=== PATIENT | male | born 2000 | race Caucasian/White ===

== ENCOUNTER 2024-11-01 10:08 | Emergency (ER) | payer OTHER, SELFPAY ==
[2024-11-01] MEDS ORDERED: MORPHINE 4 MG/ML SYR ONE ×2 (10:50→11:59)
[2024-11-01] MEDS ORDERED: NA CHLORIDE 0.9% 1,000 ML ONE (10:50)
[2024-11-01] MEDS ORDERED: ONDANSETRON 4 MG/2 ML VIAL ONE (10:50)
[2024-11-01 11:10] LABS: Absolute Lymphocytes (CBC) 0.5 K/uL (0.7-4.9); Hematocrit 42.6 % (39.6-49.0); Hemoglobin 14.5 g/dL (13.6-17.9); MCH 32.0 pg (27.0-35.0); MCHC 34.1 g/dL (32.0-36.0); MCV 93.8 fL (80-100); MPV 7.7 fL (7.6-11.3); Nucleated RBC Absolute Count 0.0 (0-0); Nucleated Red Blood Cells % 0.1 % (0-0); RBC Red Blood Cell Count 4.54 M/uL (4.33-5.43); White Blood Count 6.90 thou/uL (4.3-10.9)
[2024-11-01 11:40] LABS: ALT/SGPT 16 U/L (16-61); AST/SGOT < 10 U/L (15-37); Albumin 3.8 g/dL (3.4-5.0); Albumin/Globulin Ratio 1.0 (1.1-1.8); Alkaline Phosphatase 51 U/L (45-117); Anion Gap 9.8 mEq/L (5.0-15.0); BUN Blood Urea Nitrogen 13 mg/dL (7-18); Globulin 4.0 g/dL (2.3-3.5); Glucose Level 119 mg/dL (74-106); Lipase 26 U/L (13-75); Potassium 2.8 mEq/L (3.5-5.1)
[2024-11-01] MEDS ORDERED: POTASSIUM 25 MEQ EFFERV TAB ONE (11:46)
--- NOTE | 2024-11-01 12:34 | RAD REPORT ---
EXAMINATION: CT Abdomen Pelvis W Contrast CLINICAL INDICATION: Male, 24 years old. ABD PAIN TECHNIQUE: CT abdomen and pelvis was performed, after the administration of IV contrast, as per [facility] protocol. Axial, sagittal and coronal reconstructions were obtained. One or more of the following dose reduction techniques were used: Automated exposure control, adjustment of the mA and k V according to patient size, and iterative reconstruction. Unless otherwise specified, incidental findings do not require dedicated imaging follow-up. COMPARISON: No prior exam. FINDINGS: LOWER CHEST: The visualized lung bases are clear. LIVER: Normal in size and contour. No focal lesion. BILIARY SYSTEM: No suspicious abnormalities. SPLEEN: Normal size. No focal lesion. PANCREAS: No mass, ductal dilation, or yordan-pancreatic fluid. ADRENALS: Normal; no mass. KIDNEYS: Normal size and contour. No hydronephrosis. URINARY BLADDER: Unremarkable. GASTROINTESTINAL TRACT: Wall thickening of the distal colon involving the descending colon through th e upper rectum. Mild free fluid in the deep pelvis. No evidence of free air, bowel obstruction or abscess. APPENDIX: Normal appendix. LYMPH NODES: No lymphadenopathy. MUSCULOSKELETAL: No acute or suspicious osseous abnormality. ADDITIONAL FINDINGS: None. IMPRESSION: Segmental distal colonic or rectal wall thickening as above, suggestive of segmental infectious or in flammatory colitis. Mild pelvic ascites.
[2024-11-01] MEDS ORDERED: AMOX/K CLAV 875 MG TAB ONE (12:42)
--- NOTE | 2024-11-01 13:09 | EDPHYS ---
Physician Documentation [facility] Name: Brandin Mcgregor Age: 24 yrs Sex: Male : 2000 Arrival Date: 11/01/2024 Time: 10:08 Bed 13 Private MD: ED Physician Monico Lino HPI: 11/01 15:48 This 24 yrs old Male presents to ER via Ambulatory with complaints of dr5 Abdominal Pain, Bloody Stools. 15:48 The patient presents with abdominal pain in the left lower quadrant. Onset: The dr5 symptoms/episode began/occurred last night. Patient is a 24-year-old male with no Brandi history coming in with left lower quadrant abdominal pain with bloody stools and diarrhea. Patient reports that he also had fever last night that has since resolved. Patient denies chest pain, shortness of breath, nausea, vomiting, constipation.. Historical: - Allergies: 10:26 No Known Allergies; ll1 - PMHx: 10:26 None; ll1 - PSHx: 10:26 None; ll1 - Immunization history:: Adult Immunizations up to date. - Social history:: Smoking status: Patient reports the use of cigarette tobacco products, smokes .2 packs per day, Reported history of juuling and/or vaping. ROS: 15:48 Constitutional: as per hpi dr5 Exam: 15:48 Constitutional: This is a well developed, well nourished patient who is awake, alert, dr5 and in no acute distress. Head/Face: Normocephalic, atraumatic. Eyes: Pupils equal round and reactive to light, extra-ocular motions intact. Lids and lashes normal. Conjunctiva and sclera are non-icteric and not injected. Cornea within normal limits. Periorbital areas with no swelling, redness, or edema. Neck: Trachea midline, no thyromegaly or masses palpated, and no cervical lymphadenopathy. Supple, full range of motion without nuchal rigidity, or vertebral point tenderness. No Meningismus. Chest/axilla: Normal chest wall appearance and motion. Nontender with no deformity. No lesions are appreciated. Cardiovascular: Regular rate and rhythm with a normal S1 and S2. Normal PMI, no JVD. No pulse deficits. Respiratory: Lungs have equal breath sounds bilaterally, clear to auscultation. No rales, rhonchi or wheezes noted. No increased work of breathing, no retractions or nasal flaring. Back: No spinal tenderness. No costovertebral tenderness. Full range of motion. Skin: Warm, dry with normal turgor. Normal color with no rashes, no lesions, and no evidence of cellulitis. MS/ Extremity: Pulses equal, no cyanosis. Neurovascular intact. Full, normal range of motion. Neuro: Awake and alert, GCS 15, oriented to person, place, time, and situation. Cranial nerves II-XII grossly intact. Motor strength 5/5 in all extremities. Sensory grossly intact. Cerebellar exam normal. Normal gait. 15:48 Abdomen/GI: Inspection: abdomen appears normal, Bowel sounds: normal, Palpation: soft, nontender, in all quadrants, Vital Signs: 10:26 BP 143 / 95; Pulse 72; Resp 17; Temp 98.6; Pulse Ox 99% on R/A; Weight 129.27 kg; ll1 Height 6 ft. 0 in. ; Pain 3/10; 11:00 BP 117 / 81; Pulse 73; Resp 18; Pulse Ox 100% on R/A; jp5 12:10 Pain 8/10; jp5 12:10 BP 114 / 67; Pulse 80; Resp 16; Pulse Ox 100% on R/A; jp5 13:00 BP 93 / 72; Pulse 78; Resp 16; Temp 98; Pulse Ox 100% on R/A; Pain 0/10; jp5 10:26 Body Mass Index 38.65 (129.27 kg, 182.88 cm) ll1 10:26 Pain Scale: Adult ll1 12:10 Pain Scale: Adult jp5 13:00 Pain Scale: Adult jp5 MDM: 10:14 Medical Screening Exam initiated dr5 15:48 Differential diagnosis: appendicitis, cholecystitis, Cholelithiasis, diverticulitis, dr5 gastritis, Colitis, diverticulitis. Data reviewed: vital signs, nurses notes, lab test result(s), amylase and lipase, CBC, white blood cell count, hemoglobin, hematocrit, platelets, electrolytes, sodium, potassium, chloride, serum bicarbonate, BUN, creatinine, serum glucose, radiologic studies, CT scan. Consideration of Admission/Observation Escalation of care including admission/observation considered. Escalation considered patient found to have anemia or abnormality on CT scan. I considered the following discharge prescriptions or medication management in the emergency department I discussed and recommended Over The Counter medications, Medications were administered in the Emergency Department. See MAR. Test considered but Not performed: X-ray: X-ray considered of chest but patient not having chest pain or cough.. Historians other than the Patient: Spouse/Significant Other: Significant other. Care significantly affected by the following Social Determinants of Health: Poor access to healthcare and/or lack of insurance, Poor access to transportation, Problems related to employment. Counseling: I had a detailed discussion with the patient and/or guardian regarding the historical points, exam findings, and any diagnostic results supporting the discharge/admit diagnosis, the presence of at least one elevated blood pressure reading (>120/80) during this emergency department visit, lab results, radiology results, the need for outpatient follow up, for definitive care, a family practitioner, to return to the emergency department if symptoms worsen or persist or if there are any questions or concerns that arise at home. Medication response: morphine relieved the patient's pain. Symptoms have resolved, Zofran relieved the patient's nausea. 11/01 10:25 Order name: CBC with Diff; Complete Time: 11:13 11/01 10:25 Order name: CMP; Complete Time: 11:43 11/01 10:25 Order name: Lipase; Complete Time: 11:43 11/01 10:25 Order name: CT Abd/Pelvis - IV Contrast Only; Complete Time: 12:36 11/01 10:25 Order name: IV Saline Lock; Complete Time: 11:00 11/01 10:25 Order name: Labs collected and sent; Complete Time: 11:00 dr5 Administered Medications: 11:00 Drug: NS 0.9% IV 1000 ml IV at 1 bolus Per protocol; to be given as a bolus over 60 jp5 minutes Route: IV; Rate: 1 bolus; Site: right antecubital; 12:00 Follow up: Response: No adverse reaction; IV Status: Completed infusion; IV Intake: jp5 1000ml 11:01 Drug: Ondansetron IVP 4 mg IVP once; over 2 minutes Route: IVP; Site: right antecubital;jp5 11:30 Follow up: Response: No adverse reaction jp5 11:10 Not Given (Patient Refused): morphineor iv 4 mg IVP once over 4 mins jp5 11:48 Drug: Potassium PO Effervescent Tablet 50 mEq PO once; dissolve in 4 ounces of water or jp5 juice Route: PO; 12:15 Follow up: Response: No adverse reaction jp5 12:10 Drug: morphine IVP or IV 4 mg IVP once over 4 mins Route: IVP; Infused Over: 4 mins; jp5 Site: right antecubital; 12:39 Follow up: Response: No adverse reaction; Pain is decreased jp5 12:43 Drug: Amoxicillin-Clavulanate PO 875 mg PO once Route: PO; jp5 Disposition: 16:08 I was immediately available on-site in the Emergency Department for consultation in the ms3 care of the patient. Disposition Summary: 11/01/24 13:09 Discharge Ordered Notes: Location: Home dr5 Condition: Stable dr5 Diagnosis - Other specified noninfective gastroenteritis and colitis dr5 Followup: dr5 - With: Emergency Department - When: As needed - Reason: Worsening of condition Followup: dr5 - With: Private Physician - When: 1 - 2 days - Reason: Recheck today's complaints, Continuance of care, Re-evaluation by your physician Discharge Instructions: - Discharge Summary Sheet dr5 - Colitis dr5 Forms: - Medication Reconciliation Form dr5 - Antibiotic Education dr5 - Prescription Opioid Use dr5 - Patient Portal Instructions dr5 - Leadership Thank You Letter dr5 Prescriptions: - Augmentin 875-125 mg Oral Tablet - take 1 tablet ORAL route every 12 hours for 10 days; 20 tablet; Refills: 0, dr5 Product Selection Permitted - Tramadol 50 mg Oral Tablet - take 1 tablet ORAL route every 8 hours as needed; 12 tablet; Refills: 0, dr5 Product Selection Permitted Signatures: Dispatcher [employer] EDMitchell Talavera, RN RN ll1 Monico Lino DO DO ms3 Carolyn Quezada RN RN jp5 Kristian Avitia, DIRECTOR OF GRANTS-C DIRECTOR OF GRANTS-Cdr5
--- NOTE | 2024-11-01 13:09 | ER ---
Nurse's Notes [facility] Name: Brandin Mcgregor Age: 24 yrs Sex: Male : 2000 Arrival Date: 11/01/2024 Time: 10:08 Bed 13 Private MD: Diagnosis: Other specified noninfective gastroenteritis and colitis Presentation: 11/01 10:26 Chief complaint: Patient states: Abdominal pain with fever started 2 night ago. Started ll1 having bloody stools yesterday, at least 15 episodes since. Coronavirus screen: Client denies travel out of the [place] in the last 14 days. Ebola Screen: Patient denies travel to an Ebola-affected area in the 21 days before illness onset. Initial Sepsis Screen: Does the patient meet any 2 criteria? No. Patient's initial sepsis screen is negative. Does the patient have a suspected source of infection? No. Patient's initial sepsis screen is negative. Risk Assessment: Do you want to hurt yourself or someone else? Patient reports no desire to harm self or others. Onset of symptoms was October 30, 2024. 10:26 Method Of Arrival: Ambulatory ll1 10:26 Acuity: HALEY 2 ll1 Historical: - Allergies: 10:26 No Known Allergies; ll1 - PMHx: 10:26 None; ll1 - PSHx: 10:26 None; ll1 - Immunization history:: Adult Immunizations up to date. - Social history:: Smoking status: Patient reports the use of cigarette tobacco products, smokes .2 packs per day, Reported history of juuling and/or vaping. Screenin:55 [facility] ED Fall Risk Assessment (Adult) History of falling in the last 3 months, jp5 including since admission No falls in past 3 months (0 pts) Confusion or Disorientation No (0 pts) Intoxicated or Sedated No (0 pts) Impaired Gait No (0 pts) Mobility Assist Device Used No (0 pt) Altered Elimination No (0 pt) Score/Fall Risk Level 0 - 2 = Low Risk. [facility] ED Fall Risk Assessment (Adult) Score/Fall Risk Level 0 - 2 = Low Risk Oriented to surroundings, Maintained a safe environment, Educated pt \T\ family on fall prevention, incl call for assistance when getting out of bed, Assessed \T\ reinforced patient's understanding of fall precautions, Provided non-skid footwear, Hourly rounding (assess needs \T\ fall precautionary measures) done. Abuse screen: Denies threats or abuse. Denies injuries from another. Nutritional screening: No deficits noted. Tuberculosis screening: No symptoms or risk factors identified. Assessment: 10:55 Pain: Complains of pain in abdomen Pain currently is 8 out of 10 on a pain scale. jp5 Quality of pain is described as crampy, Current management is with pt refusing pain meds at this time - is no interventions. GI: Bowel sounds present X 4 quads. Abd is soft Reports diarrhea, nausea, blood in stool. Vital Signs: 10:26 BP 143 / 95; Pulse 72; Resp 17; Temp 98.6; Pulse Ox 99% on R/A; Weight 129.27 kg; ll1 Height 6 ft. 0 in. ; Pain 3/10; 11:00 BP 117 / 81; Pulse 73; Resp 18; Pulse Ox 100% on R/A; jp5 12:10 Pain 8/10; jp5 12:10 BP 114 / 67; Pulse 80; Resp 16; Pulse Ox 100% on R/A; jp5 13:00 BP 93 / 72; Pulse 78; Resp 16; Temp 98; Pulse Ox 100% on R/A; Pain 0/10; jp5 10:26 Body Mass Index 38.65 (129.27 kg, 182.88 cm) ll1 10:26 Pain Scale: Adult ll1 12:10 Pain Scale: Adult jp5 13:00 Pain Scale: Adult jp5 ED Course: 10:12 Patient arrived in ED. im 10:13 Kristian Avitia FNP-C is PHCP. dr5 10:13 Monico Lino DO is Attending Physician. dr5 10:25 Arm band placed on Patient placed in an exam room, in the treatment room, on a ll1 stretcher. 10:28 Triage completed. ll1 10:37 Carolyn Quezada, HALLIE is Primary Nurse. jp5 10:55 Patient has correct armband on for positive identification. Bed in low position. Call jp5 light in reach. Side rails up X 1. Provided Education on: call light. Pulse ox on. NIBP on. Warm blanket given. 10:58 Inserted saline lock: 20 gauge in right antecubital area, using aseptic technique. jp5 Blood collected. Flushed with 10 mL NS. 11:00 CBC with Diff Sent. jp5 11:00 CMP Sent. jp5 11:00 Lipase Sent. jp5 11:13 No provider procedures requiring assistance completed. jp5 11:59 CT Abd/Pelvis - IV Contrast Only In Process Unspecified. EDMS 13:23 IV discontinued, intact, bleeding controlled, No redness/swelling at site. Pressure jp5 dressing applied. Administered Medications: 11:00 Drug: NS 0.9% IV 1000 ml IV at 1 bolus Per protocol; to be given as a bolus over 60 jp5 minutes Route: IV; Rate: 1 bolus; Site: right antecubital; 12:00 Follow up: Response: No adverse reaction; IV Status: Completed infusion; IV Intake: jp5 1000ml 11:01 Drug: Ondansetron IVP 4 mg IVP once; over 2 minutes Route: IVP; Site: right antecubital;jp5 11:30 Follow up: Response: No adverse reaction jp5 11:10 Not Given (Patient Refused): morphineor iv 4 mg IVP once over 4 mins jp5 11:48 Drug: Potassium PO Effervescent Tablet 50 mEq PO once; dissolve in 4 ounces of water or jp5 juice Route: PO; 12:15 Follow up: Response: No adverse reaction jp5 12:10 Drug: morphine IVP or IV 4 mg IVP once over 4 mins Route: IVP; Infused Over: 4 mins; jp5 Site: right antecubital; 12:39 Follow up: Response: No adverse reaction; Pain is decreased jp5 12:43 Drug: Amoxicillin-Clavulanate PO 875 mg PO once Route: PO; jp5 Medication: 11:13 VIS not applicable for this client. jp5 Intake: 12:00 IV: 1000ml; Total: 1000ml. jp5 Outcome: 13:09 Discharge ordered by . lidya 13:23 Discharged to home ambulatory, jp5 13:23 Condition: good 13:23 Discharge instructions given to patient, family, Instructed on discharge instructions, follow up and referral plans. no drinking with medication, medication usage, Demonstrated understanding of instructions, follow-up care, medications, Prescriptions given X 2, 13:25 Patient left the ED. jp5 Signatures: Dispatcher [employer] EDMS Mitchell Lora RN RN ll1 Elsie Aguirre Jailene, RN RN jp5 Kristian Avitia, [employer]-Cdr5
[2024-11-01 13:49] VITALS: O2SAT 100
[2024-11-01 13:51] VITALS: BP 93/72; TEMP 98
== END 2024-11-01 13:25 | disposition home or self-care (01) ==
LOC: ER 10:08
DX: K52.89 Other specified noninfective gastroenteritis and colitis (principal); F17.210 Nicotine dependence, cigarettes, uncomplicated
CPT/HCPCS: 36415; 74177; 80053; 83690; 85025; 96361; 96374; 96375; 99284; J2405; J7030; Q9967